=== PATIENT | female | born 1955 | race Hispanic/Latino ===

== ENCOUNTER 2019-05-05 12:39 | Emergency (ER) | payer SELFPAY ==
--- NOTE | 2019-05-05 13:01 | Emergency Department Report ---
Blank Doc - Documentation Documentation: 63-year-old female that presents with left sided facial swelling and dental pa in. This initial assessment/diagnostic orders/clinical plan/treatment(s) is/are subject to change based on patient's health status, clinical progression and re- assessment by fellow clinical providers in the ED. Further treatment and workup at subsequent clinical providers discretion. Patient/guardians urged not to elope from the ED as their condition may be serious if not clinically assessed and managed. Initial orders include: 1- Patient sent to [facility] for further evaluation and treatment 2- labs for possible CT scan.
[2019-05-05 14:12] LABS: Basophils # (Auto) 0.1 K/mm3 (0.0-0.1); Basophils % (Auto) 0.5 % (0.0-1.8); Eosinophils # (Auto) 0.1 K/mm3 (0.0-0.4); Eosinophils % (Auto) 0.6 % (0.0-4.3); Hemoglobin 15.6 gm/dl (10.1-14.3); Lymphocytes # (Auto) 1.9 K/mm3 (1.2-5.4); Lymphocytes % (Auto) 15.4 % (13.4-35.0); Mean Corpuscular HGB Conc 34 % (30-34); Mean Corpuscular Volume 93 fl (79-97); Monocytes # (Auto) 1.1 K/mm3 (0.0-0.8); Monocytes % (Auto) 8.4 % (0.0-7.3); Platelet Count 367 K/mm3 (140-440); Red Blood Count 4.93 M/mm3 (3.65-5.03); Red Cell Distribution Width 14.2 % (13.2-15.2)
[2019-05-05 14:21] LABS: BUN/Creatinine Ratio 19; Blood Urea Nitrogen 13 mg/dL (7-17); Calcium 9.3 mg/dL (8.4-10.2); Hemolysis Index 12
[2019-05-05] MEDS ORDERED: cefTRIAXone/NS 1 GM/50 ML 1 GM/50 ML BAG IV ONE (16:04)
[2019-05-05] MEDS ORDERED: KETOROLAC 30 MG/1 ML INJ IV ONE (16:04)
--- NOTE | 2019-05-05 16:06 | Emergency Department Report ---
ED ENT HPI - General Chief complaint: Dental/Oral Stated complaint: LFT SIDE ABCESS/SWELLING/PAIN Time Seen by Provider: 05/05/19 13:00 Source: patient Mode of arrival: Ambulatory Limitations: No Limitations - History of Present Illness Initial comments: This is a 63-year-old female who presents with left lower dental pain and left-sided facial swelling for 2 days. Patient reports facial swelling increased on left side of face this morning. States pain to left lower gums are worsening. She reports losing teeth #19, 20, & 21 several years ago. States the dentist left the root and occasionally she have issues with pain. Patient reports pain as 10/10 on pain scale, throbbing intensity, that is constant. She has taken NSAIDs with minimal improvement of symptoms. She denies fever, chills, difficulty swallowing, drooling, or sore throat. MD complaint: tooth pain, other (left sided facial swelling) Onset/Timin -: days(s) Location: tooth # (19, 20, & 21) 1 - missing teeth, erythema, and swelling Severity: severe Severity scale (0 -10): 10 Quality: other (throbbing) Consistency: constant Improves with: none Worsens with: eating Context- Dental: history of dental caries, poor dental care Associated Symptoms: gum swelling, toothache. denies: fever, cough, pain with swallowing, sore throat, tinnitus, hearing loss, discharge from ear, rhinorrhea - Related Data Previous Rx's Medication Instructions Recorded Last Taken Type Chlorhexidine Mouthwash [Peridex] 15 ml MM BID #1 bottle 05/05/19 Unknown Rx Clindamycin [Clindamycin CAP] 300 mg PO QID #28 cap 05/05/19 Unknown Rx oxyCODONE /ACETAMINOPHEN [Percocet 1 tab PO Q6HR PRN #12 tablet 05/05/19 Unknown Rx 5/325] Allergies Allergy/AdvReac Type Severity Reaction Status Date / Time codeine Allergy Swelling Verified 05/05/19 13:00 Sulfa (Sulfonamide Allergy Swelling Verified 05/05/19 13:00 Antibiotics) ED Dental HPI - General Chief complaint: Dental/Oral Stated complaint: LFT SIDE ABCESS/SWELLING/PAIN Time Seen by Provider: 05/05/19 13:00 Source: patient Mode of arrival: Ambulatory Limitations: No Limitations - Related Data Previous Rx's Medication Instructions Recorded Last Taken Type Chlorhexidine Mouthwash [Peridex] 15 ml MM BID #1 bottle 05/05/19 Unknown Rx Clindamycin [Clindamycin CAP] 300 mg PO QID #28 cap 05/05/19 Unknown Rx oxyCODONE /ACETAMINOPHEN [Percocet 1 tab PO Q6HR PRN #12 tablet 05/05/19 Unknown Rx 5/325] Allergies Allergy/AdvReac Type Severity Reaction Status Date / Time codeine Allergy Swelling Verified 05/05/19 13:00 Sulfa (Sulfonamide Allergy Swelling Verified 05/05/19 13:00 Antibiotics) ED Review of Systems ROS: Stated complaint: LFT SIDE ABCESS/SWELLING/PAIN Other details as noted in HPI Constitutional: denies: chills, fever ENT: dental pain. denies: ear pain, throat pain, hearing loss, epistaxis, congestion Respiratory: denies: cough, shortness of breath, wheezing Cardiovascular: denies: chest pain, palpitations Gastrointestinal: denies: abdominal pain, nausea, diarrhea Skin: denies: rash, lesions Neurological: denies: headache, weakness, paresthesias Psychiatric: denies: anxiety, depression ED Past Medical Hx - Past Medical History Previous Medical History?: No - Surgical History Hx Appendectomy: Yes - Social History Smoking Status: Current Every Day Smoker Substance Use Type: Marijuana - Medications Home Medications: Home Medications Medication Instructions Recorded Confirmed Last Taken Type Chlorhexidine Mouthwash [Peridex] 15 ml MM BID #1 bottle 05/05/19 Unknown Rx Clindamycin [Clindamycin CAP] 300 mg PO QID #28 cap 05/05/19 Unknown Rx oxyCODONE /ACETAMINOPHEN [Percocet 1 tab PO Q6HR PRN #12 tablet 05/05/19 Unknown Rx 5/325] ED Physical Exam - General Limitations: No Limitations General appearance: alert, in no apparent distress - ENT ENT exam: Present: normal orophraynx, mucous membranes moist, TM's normal bilaterally, normal external ear exam, other (Teeth #19, 20, & 21 black spot where tooth used to be, gingival swelling, tenderness, erythema,) - Respiratory Respiratory exam: Present: normal lung sounds bilaterally. Absent: respiratory distress - Cardiovascular Cardiovascular Exam: Present: regular rate, normal rhythm. Absent: systolic murmur, diastolic murmur, rubs, gallop - GI/Abdominal GI/Abdominal exam: Present: soft, normal bowel sounds. Absent: distended, tenderness, guarding, rigid - Neurological Exam Neurological exam: Present: alert, oriented X3 - Psychiatric Psychiatric exam: Present: normal affect, normal mood - Skin Skin exam: Present: warm, dry, intact, normal color. Absent: rash ED Course Vital Signs 05/05/19 13:00 Temperature 98.0 F Pulse Rate 95 H Respiratory 19 Rate Blood Pressure 133/88 O2 Sat by Pulse 98 Oximetry ED Medical Decision Making - Lab Data Result diagrams: 05/05/19 13:56 05/05/19 13:56 Lab Results 05/05/19 05/05/19 Range/Units 13:56 13:56 WBC 12.6 H (4.5-11.0) K/mm3 RBC 4.93 (3.65-5.03) M/mm3 Hgb 15.6 H (10.1-14.3) gm/dl Hct 46.0 H (30.3-42.9) % MCV 93 (79-97) fl MCH 32 (28-32) pg MCHC 34 (30-34) % RDW 14.2 (13.2-15.2) % Plt Count 367 (140-440) K/mm3 Lymph % (Auto) 15.4 (13.4-35.0) % [place] % (Auto) 8.4 H (0.0-7.3) % Eos % (Auto) 0.6 (0.0-4.3) % Baso % (Auto) 0.5 (0.0-1.8) % Lymph # 1.9 (1.2-5.4) K/mm3 [place] # 1.1 H (0.0-0.8) K/mm3 Eos # 0.1 (0.0-0.4) K/mm3 Baso # 0.1 (0.0-0.1) K/mm3 Seg Neutrophils % 75.1 H (40.0-70.0) % Seg Neutrophils # 9.5 H (1.8-7.7) K/mm3 Sodium 138 (137-145) mmol/L Potassium 4.2 (3.6-5.0) mmol/L Chloride 103.3 (98-107) mmol/L Carbon Dioxide 21 L (22-30) mmol/L Anion Gap 18 mmol/L BUN 13 (7-17) mg/dL Creatinine 0.7 (0.7-1.2) mg/dL Estimated GFR > 60 ml/min BUN/Creatinine Ratio 19 % Glucose 89 (65-100) mg/dL Calcium 9.3 (8.4-10.2) mg/dL - Medical Decision Making This is a 63-year-old female that presents with left side facial swelling and dental pain for 3 days. Patient is stable and was examined by me. Labs obtained with mild leukocytosis. All other labs unremarkable. Area left-sided facial swelling with no palpated abscess or cyst to gum. Teeth are missing 19, 20, & 21. Given analgesics and antibiotics in ER. Susceptible of peridontal disease. Start clindamycin, chlorhexidine, and tramadol. Discussed plan with patient. She agreed with ER plan. Discharged stable. Follow up with dentist. Critical care attestation.: If time is entered above; I have spent that time in minutes in the direct care of this critically ill patient, excluding procedure time. ED Disposition Clinical Impression: Periodontal disease, Pain, dental Disposition: DC- TO HOME OR SELFCARE Is pt being admited?: No Condition: Stable Instructions: Toothache (ED) Additional Instructions: Complete all days of clindamycin as prescribed for 7 days. Follow up with Dentist from referrals list provided. Prescriptions: Clindamycin [Clindamycin CAP] 300 mg PO QID #28 cap oxyCODONE /ACETAMINOPHEN [Percocet 5/325] 1 tab PO Q6HR PRN #12 tablet PRN Reason: Pain Chlorhexidine Mouthwash [Peridex] 15 ml MM BID #1 bottle Referrals: [facility] [Outside] - 3-5 Days [facility] [Outside] - 3-5 Days [facility] [Outside] - 3-5 Days Time of Disposition: 17:41
[2019-05-05 18:23] VITALS: BP 107/76
== END 2019-05-05 18:22 | disposition home or self-care (01) ==
LOC: ED 12:39
DX: K05.6 Periodontal disease, unspecified (principal); F17.200 Nicotine dependence, unspecified, uncomplicated; F12.10 Cannabis abuse, uncomplicated; Z88.5 Allergy status to narcotic agent; Z88.2 Allergy status to sulfonamides
CPT/HCPCS: 36415; 80048; 85025; 96365; 96375; 99283; J0696; J1885